=== PATIENT | female | born 1970 | race Caucasian/White ===

== ENCOUNTER 2025-06-06 15:34 | Emergency (ER) | payer MEDICAID ==
[~2025-06-06] VITALS: Ht 165.1 cm; Wt 61.2 kg
[2025-06-06] MEDS ORDERED: NAPR-1164 PO (17:04)
[2025-06-06 17:30] VITALS: BP 130/80; TEMP 98.5; O2SAT 99
== END 2025-06-06 17:30 | disposition home or self-care (01) ==
LOC: ER 15:34
DX: S13.4XXA Sprain of ligaments of cervical spine, initial encounter (principal); I51.9 Heart disease, unspecified; V43.62XA Car passenger injured in collision with other type car in traffic accident, initial encounter; Y93.89 Activity, other specified; Y92.410 Unspecified street and highway as the place of occurrence of the external cause; Y99.8 Other external cause status
CPT/HCPCS: 72040-TC